=== PATIENT | female | born 1945 | race Caucasian/White ===

== ENCOUNTER 2022-04-13 14:13 | Inpatient (IN) | payer MEDICARE, OTHER ==
[~2022-04-13 14:13] MED LIST: Iopamidol 370 76% 100 ML VIAL ONE
[2022-04-13 15:08] LABS: ALT (SGPT) 7 U/L (8-55); AST (SGOT) 31 U/L (5-34); Albumin 3.2 g/dL (3.4-4.8); Alkaline Phosphatase 227 U/L (40-110); Anion Gap 18 mmol/L (10-20); BUN (Urea Nitrogen) 32 mg/dL (9.8-20.1); Bilirubin, Total 0.7 mg/dL (0.2-1.2); Calc. Creatinine Clearance 0 mL/min (70-130); Calcium 9.3 mg/dL (7.8-10.44); Carbon Dioxide 32 mmol/L (23-31); Chloride 92 mmol/L (98-107); Estimated GFR 10; Globulin 2.9 g/dL (2.4-3.5); Glucose 157 mg/dL (83-110); Potassium 4.7 mmol/L (3.5-5.1); Protein, Total 6.1 g/dL (5.8-8.1); Sodium 137 mmol/L (136-145)
[2022-04-13 15:24] LABS: #Basophils 0.1 10x3/uL (0.0-0.2); #Eosinphils 0.2 10x3/uL (0.0-0.5); #Monocytes 0.9 10x3/uL (0.0-1.1); #Neutrophils 8.9 10x3/uL (1.5-8.4); %Basophils 1.1 % (0.0-2.0); %Eosinophils 2.1 % (0.0-6.0); %Lymphocytes 7.4 % (18.0-47.0); %Monocytes 7.9 % (0.0-10.0); %Neutrophils 80.7 % (40.0-75.0); Hemoglobin 8.6 g/dL (12.0-15.5); Mean Corpuscular HGB CONC 31.9 g/dL (32.0-36.0); Mean Corpuscular Hemoglobin 33.7 pg (27.0-33.0); Mean Corpuscular Volume 105.9 fl (81.6-98.3); Mean Platelet Volume 8.6 fl (7.4-10.4); Platelet Count 454 10x3/uL (150-450); RBC Distribution Width 13.7 % (11.5-14.5); Red Blood Cell (RBC) Count 2.55 10x6/uL (3.90-5.03)
[2022-04-13 15:26] LABS: CKMB 2.1 ng/mL (0-6.6)
[2022-04-13 15:43] LABS: Anisocytosis SLIGHT = 6-15 cells (100X) (0-5/hpf); Macrocytosis MODERATE=16-30 cells (100X) (0-5/hpf); Platelet Morphology Comment Appears Increased
[2022-04-13] MEDS ORDERED: Cefepime 2 GM VIAL ONE (15:51)
[2022-04-13] MEDS ORDERED: diphenhydrAMINE 50 MG/ML VIAL ONE (15:51)
[2022-04-13] MEDS ORDERED: methylPREDNISolone Sod Succ 40 MG VIAL ONE (15:51)
[2022-04-13] MEDS ORDERED: Famotidine/PF 20 mg/2ml Vial ONE (15:52)
[2022-04-13] MEDS ORDERED: GUAIFENESIN SF SOLN 200 MG/10 ML UDCUP PO PRN (16:51)
[2022-04-13] MEDS ORDERED: Benzonatate 100 MG CAP PO PRN (16:51)
[2022-04-13] MEDS ORDERED: Dextrose 5% in Water 1,000 ML IV PRN (16:55)
[2022-04-13] MEDS ORDERED: Dextrose 50% Abboject 50 ML SYRINGE SLOW IVP PRN (16:55)
[2022-04-13] MEDS ORDERED: HumaLOG 300 UNITS/3 ML VIAL SC PRN ×2 (16:55)
[2022-04-13] MEDS ORDERED: Ondansetron PF 4 MG/2 ML Vial IVP PRN (16:59)
[2022-04-13] MEDS ORDERED: Ondansetron ODT 4 MG TAB PO PRN (16:59)
[2022-04-13] MEDS ORDERED: Senokot S 8.6-50 MG TAB PO PRN (16:59)
[2022-04-13] MEDS ORDERED: Calcium Acetate 667 MG CAP PO SCH (17:00)
[2022-04-13] MEDS ORDERED: VANCOMYCIN 1.25 GM/250 ML BAG 1.25 GM in Premix Bag 1 BAG IVPB SCH (17:00)
[2022-04-13 17:19] LABS: SARS-CoV-2 NAA Rapid Test Not Detected (NotDetected)
[2022-04-13] MEDS ORDERED: Vancomycin Hemodialysis Sliding Scale FS SCH (18:15)
[2022-04-13] MEDS ORDERED: HOLD VANCOMYCIN FOR LEVEL >25 SLOW IVP SCH (18:15)
[2022-04-13 18:39] LABS: HBSAg Index 0.19 S/CO (0-0.99); Hep B Surf Ag Non-Reactive S/CO (NonReactive)
[2022-04-13 18:40] LABS: Troponin I 0.047 ng/mL (< 0.028)
[2022-04-13 20:17] LABS: Troponin I 0.049 ng/mL (< 0.028)
[2022-04-13] MEDS: Heparin 5,000 UNITS/ML VIAL SC SCH (23:55)
[2022-04-14] MEDS ORDERED: oxyCODONE 5 MG TAB PO SCH (00:01)
[2022-04-14] MEDS ORDERED: cloNIDine 0.1 MG TAB PO SCH (00:01)
[2022-04-14 00:30] VITALS: BMI 30.8
[2022-04-14] MEDS: Acetaminophen 325 MG TAB PO PRN ×3 (02:59→20:35)
[2022-04-14 04:26] LABS: #Basophils 0.1 10x3/uL (0.0-0.2); #Monocytes 0.4 10x3/uL (0.0-1.1); #Neutrophils 9.1 10x3/uL (1.5-8.4); %Basophils 0.9 % (0.0-2.0); %Eosinophils 0.1 % (0.0-6.0); %Lymphocytes 7.9 % (18.0-47.0); %Monocytes 3.8 % (0.0-10.0); %Neutrophils 86.3 % (40.0-75.0); Hemoglobin 8.5 g/dL (12.0-15.5); Mean Corpuscular HGB CONC 32.1 g/dL (32.0-36.0); Mean Corpuscular Hemoglobin 33.9 pg (27.0-33.0); Mean Corpuscular Volume 105.6 fl (81.6-98.3); Mean Platelet Volume 8.4 fl (7.4-10.4); Platelet Count 413 10x3/uL (150-450); RBC Distribution Width 13.6 % (11.5-14.5); Red Blood Cell (RBC) Count 2.51 10x6/uL (3.90-5.03); White Blood Cell (WBC) Count 10.5 10x3/uL (3.5-10.5)
[2022-04-14 04:31] LABS: Anion Gap 19 mmol/L (10-20); BUN (Urea Nitrogen) 23 mg/dL (9.8-20.1); Calc. Creatinine Clearance 19 mL/min (70-130); Calcium 9.7 mg/dL (7.8-10.44); Carbon Dioxide 28 mmol/L (23-31); Chloride 96 mmol/L (98-107); Estimated GFR 13; Glucose 135 mg/dL (83-110); Potassium 4.7 mmol/L (3.5-5.1); Sodium 138 mmol/L (136-145)
[2022-04-14 04:59] LABS: Macrocytosis SLIGHT = 6-15 cells (100X) (0-5/hpf); Platelet Morphology Comment Appears Adequate; Polychromasia SLIGHT = 2-3 cells (100X) (0-2/hpf)
[2022-04-14] MEDS ORDERED: cloNIDine 0.1 MG TAB PO PRN (08:10)
[2022-04-14] MEDS ORDERED: Vancomycin 1.5 GRAM/300 ML BAG 1.5 GM in Premix Bag 1 BAG IVPB SCH (08:15)
[2022-04-14] MEDS ORDERED: Calcium Acetate 667 MG CAP PO SCH (08:45)
[2022-04-14] MEDS: Zinc Sulfate 220 MG CAP PO SCH (08:59)
[2022-04-14] MEDS: Aspirin 81 mg Enteric Coated Tablet PO SCH (08:59)
[2022-04-14] MEDS ORDERED: Levothyroxine Sodium 88 MCG TAB PO SCH (09:00)
[2022-04-14] MEDS: Carvedilol 6.25 MG TAB PO SCH ×3 (09:00→20:35)
[2022-04-14] MEDS: Sertraline 100 MG TAB PO SCH (09:00)
[2022-04-14] MEDS: Cholecalciferol 1,000 UNITS (25 MCG) TAB PO SCH (09:01)
[2022-04-14] MEDS: Heparin 5,000 UNITS/ML VIAL SC SCH ×2 (09:01→20:36)
[2022-04-14] MEDS: Folic Acid/Vit B Comp W-C PO SCH (09:01)
[2022-04-14] MEDS: Gabapentin 100 MG CAP PO SCH (09:01)
[2022-04-14] MEDS: Polyethylene Glycol 3350 17 GM Packet PO SCH ×2 (09:01→23:15)
[2022-04-14] MEDS: tiZANidine HCl 4 MG TAB PO SCH ×2 (10:45→18:03)
[2022-04-14] MEDS: Calcium Acetate 667 MG CAP PO SCH ×2 (12:31→18:02)
[2022-04-14] MEDS: oxyCODONE 5 MG TAB PO PRN ×2 (13:10→23:15)
[2022-04-14 13:54] LABS: HBSAB Concentration Less than 8.00 mIU/mL; Hep B Core Total Ab Non-Reactive (NonReactive); Hep B Core Total Index 0.14 S/CO (0-0.79); Hep B Surf AB Non-Reactive (NonReactive)
[2022-04-14] MEDS ORDERED: Azithromycin 500 MG in Sodium Chloride 0.9% 250 ML 250 ML IVPB SCH (15:00)
[2022-04-14] MEDS ORDERED: Cefepime 1 GM in Sodium Chloride 0.9% 100 ML IVPB SCH (16:00)
[2022-04-14] MEDS ORDERED: EPOETIN ALFA-EPBX (ESRD) 10,000 UNIT/ML VIAL SC SCH (17:45)
[2022-04-14] MEDS: Gabapentin 400 MG CAP PO SCH (20:34)
[2022-04-14] MEDS: Azithromycin 500 MG in Sodium Chloride 0.9% 250 ML 250 ML IVPB SCH (20:36)
[2022-04-15] MEDS: tiZANidine HCl 4 MG TAB PO SCH ×3 (05:06→22:00)
[2022-04-15] MEDS: Levothyroxine Sodium 88 MCG TAB PO SCH (05:07)
[2022-04-15 06:09] LABS: #Basophils 0.2 10x3/uL (0.0-0.2); #Eosinphils 0.4 10x3/uL (0.0-0.5); #Monocytes 1.3 10x3/uL (0.0-1.1); %Basophils 1.5 % (0.0-2.0); %Eosinophils 2.9 % (0.0-6.0); %Monocytes 8.9 % (0.0-10.0); %Neutrophils 71.6 % (40.0-75.0); Hemoglobin 8.7 g/dL (12.0-15.5); Mean Corpuscular HGB CONC 31.8 g/dL (32.0-36.0); Mean Corpuscular Hemoglobin 33.1 pg (27.0-33.0); Mean Corpuscular Volume 104.2 fl (81.6-98.3); Mean Platelet Volume 8.5 fl (7.4-10.4); Platelet Count 416 10x3/uL (150-450); RBC Distribution Width 13.9 % (11.5-14.5); Red Blood Cell (RBC) Count 2.63 10x6/uL (3.90-5.03)
[2022-04-15 06:38] LABS: Anion Gap 20 mmol/L (10-20); BUN (Urea Nitrogen) 19 mg/dL (9.8-20.1); Calc. Creatinine Clearance 20 mL/min (70-130); Calcium 9.3 mg/dL (7.8-10.44); Carbon Dioxide 22 mmol/L (23-31); Chloride 100 mmol/L (98-107); Estimated GFR 15; Glucose 96 mg/dL (83-110); Potassium 4.3 mmol/L (3.5-5.1); Sodium 138 mmol/L (136-145)
[2022-04-15] MEDS: Carvedilol 6.25 MG TAB PO SCH ×2 (09:23→21:54)
[2022-04-15] MEDS: Aspirin 81 mg Enteric Coated Tablet PO SCH (09:23)
[2022-04-15] MEDS: Calcium Acetate 667 MG CAP PO SCH ×3 (09:23→19:08)
[2022-04-15] MEDS: Polyethylene Glycol 3350 17 GM Packet PO SCH ×2 (09:28→21:55)
[2022-04-15] MEDS: Zinc Sulfate 220 MG CAP PO SCH (09:31)
[2022-04-15] MEDS: Heparin 5,000 UNITS/ML VIAL SC SCH ×2 (09:31→21:54)
[2022-04-15] MEDS: Folic Acid/Vit B Comp W-C PO SCH (09:31)
[2022-04-15] MEDS: Gabapentin 100 MG CAP PO SCH (09:31)
[2022-04-15] MEDS: Sertraline 100 MG TAB PO SCH (09:31)
[2022-04-15] MEDS: Cholecalciferol 1,000 UNITS (25 MCG) TAB PO SCH (09:31)
[2022-04-15] MEDS ORDERED: Heparin 10,000 UNITS/ 10 ML VIAL FS PRN (12:30)
[2022-04-15] MEDS: Acetaminophen 325 MG TAB PO PRN (17:15)
[2022-04-15] MEDS: Gabapentin 400 MG CAP PO SCH (21:53)
[2022-04-15] MEDS: Azithromycin 500 MG in Sodium Chloride 0.9% 250 ML 250 ML IVPB SCH (21:56)
[2022-04-15] MEDS: oxyCODONE 5 MG TAB PO PRN (23:57)
[2022-04-16] MEDS: Acetaminophen 325 MG TAB PO PRN ×3 (01:28→15:41)
[2022-04-16] MEDS: tiZANidine HCl 4 MG TAB PO SCH ×2 (07:05→15:41)
[2022-04-16] MEDS: Levothyroxine Sodium 88 MCG TAB PO SCH (07:05)
[2022-04-16] MEDS ORDERED: cloNIDine 0.1 MG TAB PO PRN ×2 (08:58→10:55)
[2022-04-16] MEDS ORDERED: cloNIDine 0.1 MG TAB PO SCH (09:00)
[2022-04-16] MEDS: Polyethylene Glycol 3350 17 GM Packet PO SCH (09:07)
[2022-04-16] MEDS: Gabapentin 100 MG CAP PO SCH (11:11)
[2022-04-16] MEDS: Carvedilol 6.25 MG TAB PO SCH (11:11)
[2022-04-16] MEDS: Heparin 5,000 UNITS/ML VIAL SC SCH (11:11)
[2022-04-16] MEDS: Aspirin 81 mg Enteric Coated Tablet PO SCH (11:11)
[2022-04-16] MEDS: Folic Acid/Vit B Comp W-C PO SCH (11:11)
[2022-04-16] MEDS: Cholecalciferol 1,000 UNITS (25 MCG) TAB PO SCH (11:11)
[2022-04-16] MEDS: Calcium Acetate 667 MG CAP PO SCH ×3 (11:11→18:17)
[2022-04-16] MEDS: Sertraline 100 MG TAB PO SCH (11:12)
[2022-04-16] MEDS: Zinc Sulfate 220 MG CAP PO SCH (11:12)
[2022-04-16 11:40] VITALS: BP 177/84; TEMP 97.6
[2022-04-16] MEDS: oxyCODONE 5 MG TAB PO PRN (13:01)
== END 2022-04-16 19:59 | DRG 193 ==
LOC: CSHERS 14:13 → CSHTELE 21:27
PROVIDERS: ADMIT Family Medicine; ATTEND Family Medicine
PROC: 5A1D70Z Performance of Urinary Filtration, Intermittent, Less than 6 Hours Per Day (ICD-10-PCS; principal; 2022-04-14)
PROC: 5A1D70Z Performance of Urinary Filtration, Intermittent, Less than 6 Hours Per Day (ICD-10-PCS; 2022-04-16)
DX: J18.9 Pneumonia, unspecified organism (principal); N18.6 End stage renal disease; N39.0 Urinary tract infection, site not specified; I13.2 Hypertensive heart and chronic kidney disease with heart failure and with stage 5 chronic kidney disease, or end stage renal disease; D63.1 Anemia in chronic kidney disease; E11.22 Type 2 diabetes mellitus with diabetic chronic kidney disease; Z20.822 Contact with and (suspected) exposure to COVID-19; E11.51 Type 2 diabetes mellitus with diabetic peripheral angiopathy without gangrene; E11.40 Type 2 diabetes mellitus with diabetic neuropathy, unspecified; I25.10 Atherosclerotic heart disease of native coronary artery without angina pectoris; K21.9 Gastro-esophageal reflux disease without esophagitis; E78.5 Hyperlipidemia, unspecified; I50.9 Heart failure, unspecified; E03.9 Hypothyroidism, unspecified; M19.90 Unspecified osteoarthritis, unspecified site; Z91.041 Radiographic dye allergy status; Z88.8 Allergy status to other drugs, medicaments and biological substances; Z79.82 Long term (current) use of aspirin; Z79.4 Long term (current) use of insulin; Z79.899 Other long term (current) drug therapy; Z99.2 Dependence on renal dialysis; Z90.49 Acquired absence of other specified parts of digestive tract; Z98.890 Other specified postprocedural states
CPT/HCPCS: 36415; 36416; 71045; 71275; 80048; 80053; 82553; 83605; 83880; 84484; 85025; 86704; 86706; 87340; 90935; 93005; 93306; 94760; 96365; 96375; 97139; G0257; J0456; J0692; J1200; J1644; J2405; J2920; J3370; J7050; Q5105; Q9967; S0028

== ENCOUNTER 2022-05-28 14:48 | Outpatient (CLI) | payer MEDICARE, OTHER | END 2022-05-28 14:49 | disposition home or self-care (01) | LOC: CSHCT 14:48 | PROVIDERS: ATTEND Family Medicine | DX: J18.8 Other pneumonia, unspecified organism (principal); J84.10 Pulmonary fibrosis, unspecified | CPT/HCPCS: 71250 ==

== ENCOUNTER 2022-06-27 09:00 | Outpatient (CLI) | payer MEDICARE, OTHER | END 2022-06-27 09:01 | disposition home or self-care (01) | LOC: CSHWCC 09:00 | PROVIDERS: ATTEND Nurse Practitioner Family | DX: L89.614 Pressure ulcer of right heel, stage 4 (principal); R60.0 Localized edema | CPT/HCPCS: 11042; 87070; 87077; 87186; 87205; 97139; G0463; 99203 ==

== ENCOUNTER 2022-06-27 11:58 | Outpatient (CLI) | payer MEDICARE, OTHER | END 2022-06-27 11:59 | disposition home or self-care (01) | LOC: CSHRAD 11:58 | PROVIDERS: ATTEND Nurse Practitioner Family | DX: L89.614 Pressure ulcer of right heel, stage 4 (principal) ==

== ENCOUNTER 2022-09-17 08:10 | Outpatient (CLI) | payer MEDICARE | END 2022-09-17 08:11 | disposition home or self-care (01) | LOC: CSHWCC 08:10 | PROVIDERS: ATTEND Nurse Practitioner Family | DX: L89.614 Pressure ulcer of right heel, stage 4 (principal); E11.621 Type 2 diabetes mellitus with foot ulcer; L97.521 Non-pressure chronic ulcer of other part of left foot limited to breakdown of skin; R60.0 Localized edema | CPT/HCPCS: 11044; 97139; G0463; 99212 ==

== ENCOUNTER 2022-10-01 10:19 | Outpatient (CLI) | payer MEDICARE, OTHER | END 2022-10-01 10:20 | disposition home or self-care (01) | LOC: CSHWCC 10:19 | PROVIDERS: ATTEND Nurse Practitioner Family | DX: L89.614 Pressure ulcer of right heel, stage 4 (principal); E11.621 Type 2 diabetes mellitus with foot ulcer; L97.521 Non-pressure chronic ulcer of other part of left foot limited to breakdown of skin; R60.0 Localized edema | CPT/HCPCS: 11044; 97605 ==